=== PATIENT | female | born 1965 | race Caucasian/White ===

== ENCOUNTER 2021-10-17 20:27 | Emergency (ER) | payer BC ==
[2021-10-17 21:33] LABS: ANION GAP 13.6 mmol/L (5-15)
== END 2021-10-17 22:09 | disposition home or self-care (01) ==
LOC: VM.ED 20:27
DX: R55 Syncope and collapse (principal); R03.0 Elevated blood-pressure reading, without diagnosis of hypertension; E03.9 Hypothyroidism, unspecified; Z72.0 Tobacco use; Z88.5 Allergy status to narcotic agent; Z88.0 Allergy status to penicillin; Z79.899 Other long term (current) drug therapy
CPT/HCPCS: 36415; 80053; 84443; 84484; 85025; 85379; 93005; 99284